=== PATIENT | male | born 1990 | race Caucasian/White ===

== ENCOUNTER 2019-09-05 02:39 | Emergency (ER) | payer MEDICAID, OTHER ==
[~2019-09-05] VITALS: Ht 182.9 cm; Wt 69.9 kg
[2019-09-05 03:30] VITALS: BP 111/79
== END 2019-09-05 04:20 ==
LOC: EDBD 02:39 → ER 02:42
DX: R45.851 Suicidal ideations (principal); V49.9XXA Car occupant (driver) (passenger) injured in unspecified traffic accident, initial encounter; Y93.89 Activity, other specified; Y92.89 Other specified places as the place of occurrence of the external cause; Y99.8 Other external cause status